=== PATIENT | male | born 1945 | race Caucasian/White ===

== ENCOUNTER → 2016-12-17 | Outpatient (CLI) | payer OTHER ==
--- NOTE | 2016-12-17 09:29 | US ---
Bilateral Duplex/Doppler Carotid Sonography Clinical Indications: R09.89 hypertension, prior cardiac stent. Technique: The cervical portions of the carotid and vertebral arteries were imaged and interrogated by color and pulsed Duplex/Doppler. Spectral analysis was performed. Findings: Right Carotid: Right CCA peak systolic velocity = 76 cm/sec Right ICA peak systolic velocity = 58 cm/sec Right ECA peak systolic velocity = 90 cm/sec Right ICA/CCA systolic velocity ratio = 1.3 No flow-limiting carotid stenosis. Minimal calcified plaque involving the right carotid bulb and prox imal right internal carotid artery. Left Carotid: Left CCA peak systolic velocity = 93 cm/sec Left ICA peak systolic velocity = 48 cm/sec Left ECA peak systolic velocity = 71 cm/sec Left ICA/CCA systolic velocity ratio = 0.5 No flow-limiting carotid stenosis. Minimal calcified plaque involving the left carotid bulb and proxi mal left internal carotid artery. Vertebral Arteries: Antegrade flow is shown by pulsed Doppler of each vertebral artery. Impression: 1. No evidence of flow-limiting carotid stenosis. 2. Minimal atherosclerotic disease bilateral carotid bulbs. 3. Bilateral vertebral arteries are patent with antegrade flow. Measurement of carotid stenosis is based on velocity parameters that correlate the residual internal carotid diameter with [place] Symptomatic Carotid Endarterectomy Trial (NASCET) based stenosis levels.
== END ==
LOC: FIMAGING 08:01
PROVIDERS: ATTEND Internal Medicine Cardiovascular Disease
DX: I65.23 Occlusion and stenosis of bilateral carotid arteries (principal); E11.9 Type 2 diabetes mellitus without complications; I25.10 Atherosclerotic heart disease of native coronary artery without angina pectoris; E78.5 Hyperlipidemia, unspecified; Z95.5 Presence of coronary angioplasty implant and graft